=== PATIENT | female | born 1990 | race Asian ===

== ENCOUNTER 2017-03-14 10:58 | Observation (INO) | payer SELFPAY ==
[2017-03-14 11:38] VITALS: BP_SYST 112
== END 2017-03-14 11:56 | disposition home or self-care (01) ==
LOC: SPU 10:58
PROVIDERS: ADMIT Obstetrics & Gynecology; ATTEND Obstetrics & Gynecology
DX: O62.9 Abnormality of forces of labor, unspecified (principal); Z3A.39 39 weeks gestation of pregnancy
CPT/HCPCS: 81002; G0378

== ENCOUNTER 2017-03-15 03:53 | Inpatient (IN) | payer SELFPAY ==
[~2017-03-15] VITALS: Ht 156 cm; Wt 53.1 kg
[2017-03-15] MEDS ORDERED: LR 1,000 ML IV SCH (04:05)
[2017-03-15] MEDS ORDERED: LR 1,000 ML IV ONE (04:05)
[2017-03-15] MEDS ORDERED: LR 500 ML IV ONE (04:05)
[2017-03-15] MEDS ORDERED: OXYTOCIN/NORMAL SALINE 1,000 ML IV SCH ×2 (04:05→05:55)
[2017-03-15] MEDS ORDERED: TERBUTALINE SULFATE 1 MG/ML VIAL SUBCUT ONE (04:15)
[2017-03-15] MEDS ORDERED: NALBUPHINE HCL 10 MG/ML AMP IVP PRN (04:15)
[2017-03-15 04:32] LABS: BASOPHILS # (AUTO) 0.1 K/uL (0.0-0.2); BASOPHILS % (AUTO) 1.2 % (0.0-2.0); EOSINOPHILS # (AUTO) 0.1 K/uL (0.0-0.4); EOSINOPHILS % (AUTO) 0.5 % (0.0-4.0); HEMATOCRIT 41.9 % (36-48); HEMOGLOBIN 13.5 g/dL (12.0-16.0); LYMPHOCYTES # (AUTO) 2.3 K/uL (1.0-5.5); LYMPHOCYTES % (AUTO) 20.4 % (20.5-51.5); MEAN CORPUSCULAR HEMOGLOBIN 29 pg (27-31); MEAN CORPUSCULAR HGB CONC 32 % (32-36); MEAN CORPUSCULAR VOLUME 89 fL (79.0-98.0); MONOCYTES # (AUTO) 0.4 K/uL (0.0-1.0); MONOCYTES % (AUTO) 3.2 % (1.7-9.3); NEUTROPHILS # (AUTO) 8.2 K/uL (1.8-7.7); NEUTROPHILS % (AUTO) 74.7 % (40.0-70.0); PLATELET COUNT (AUTO) 143 K/uL (130-430); RED BLOOD CELL COUNT(AUTO) 4.72 MIL/uL (4.2-6.2); WHITE BLOOD COUNT (AUTO) 11.1 K/uL (4.8-10.8)
[2017-03-15] MEDS ORDERED: RHO(D) IMMUNE GLOBULIN/MALTOSE 1500 UNITS/1.3 ML (WINHRO) IM PRN (06:00)
[2017-03-15] MEDS ORDERED: ACETAMINOPHEN 325 MG TABLET PO PRN (06:00)
[2017-03-15] MEDS ORDERED: DERMOPLAST SPRAY TP PRN (06:00)
[2017-03-15] MEDS ORDERED: SENNOSIDES/DOCUSATE SODIUM 1 TAB TABLET(SENOKOT-S) PO PRN (06:00)
[2017-03-15] MEDS ORDERED: TEMAZEPAM 15 MG CAPSULE PO PRN (06:00)
[2017-03-15] MEDS ORDERED: METHYLERGONOVINE MALEATE 0.2 MG TABLET PO PRN (06:00)
[2017-03-15] MEDS ORDERED: GLYCERIN/WITCH HAZEL (TUCKS PADS) TP PRN (06:00)
[2017-03-15] MEDS ORDERED: HYDROCORTISONE 0.5%, 28.35 GM TOPICAL CREAM TP PRN (06:00)
[2017-03-15] MEDS ORDERED: DOCUSATE SODIUM 100 MG CAPSULE PO PRN (06:00)
[2017-03-15] MEDS ORDERED: HYDROcodone/ACETAMIN 5-325 MG TAB (NORCO/ VICODIN) PO PRN ×2 (06:00)
[2017-03-15] MEDS ORDERED: MEASLES,MUMPS&RUBELLA VACC/PF 12500 UNIT/0.5 ML VIAL SUBQ PRN (06:00)
[2017-03-15] MEDS ORDERED: ANUSOL 1 EA SUPP.RECT (PREPARATION H) RC PRN (06:00)
[2017-03-15] MEDS ORDERED: LANOLIN 7 GM OINT. TP PRN (06:00)
[2017-03-15] MEDS ORDERED: OXYTOCIN/NORMAL SALINE 1,000 ML IV ONE (07:00)
[2017-03-15] MEDS ORDERED: LIDOCAINE PF 1% 30ML(POUR BTL) INJ ONE (10:45)
[2017-03-15] MEDS: IBUPROFEN 600 MG TABLET PO SCH ×3 (12:13→23:55)
[2017-03-16] MEDS: IBUPROFEN 600 MG TABLET PO SCH ×4 (06:22→18:03)
[2017-03-16 07:27] LABS: HEMATOCRIT 35.4 % (36-48); HEMOGLOBIN 11.4 g/dL (12.0-16.0)
== END 2017-03-17 15:15 | disposition home or self-care (01) | DRG 775 ==
LOC: SPU 03:53
PROVIDERS: ADMIT Obstetrics & Gynecology; ATTEND Obstetrics & Gynecology
PROC: 0W8NXZZ Division of Female Perineum, External Approach (ICD-10-PCS; principal; 2017-03-15)
PROC: 10E0XZZ Delivery of Products of Conception, External Approach (ICD-10-PCS; 2017-03-15)
PROC: 3E0234Z Introduction of Serum, Toxoid and Vaccine into Muscle, Percutaneous Approach (ICD-10-PCS; 2017-03-15)
DX: O80 Encounter for full-term uncomplicated delivery (principal); Z3A.39 39 weeks gestation of pregnancy; Z37.0 Single live birth; Z23 Encounter for immunization
CPT/HCPCS: 36415; 85018-TC; 85025; 86592; 86886; 86900; 86901; J2001; J2590